=== PATIENT | female | born 1940 | race Two or more races ===

== ENCOUNTER 2019-01-30 08:15 | Day surgery (SDC) | payer OTHER ==
[2019-01-29 13:06] VITALS: BMI 28.6
[2019-01-30 10:50] VITALS: TEMP 97.6
[2019-01-30 11:12] VITALS: PULSE 66
[2019-01-30 12:44] VITALS: BP 147/67
[2019-01-30 13:34] LABS: INR 1.03 (0.83-1.09); PROTHROMBIN TIME (PATIENT) 12.1 SEC (9.7-13.0)
[2019-01-30 13:48] LABS: ALBUMIN 3.9 g/dl (3.4-5.0); ALK PHOS 50 U/L (45-117); ANION GAP 7 MMOL/L (8-16); BILIRUBIN,TOTAL 0.4 mg/dL (0.2-1); BLOOD UREA NITROGEN 15 mg/dL (7-18); CALCIUM 8.8 mg/dL (8.5-10.1); CHLORIDE 104 mmol/L (98-107); CO2 30 mmol/L (21-32); CREATININE 0.5 mg/dL (0.55-1.3); GLUCOSE,RANDOM 106 mg/dL (74-106); POTASSIUM 3.3 mmol/L (3.5-5.1); SGOT/AST 20 U/L (15-37); SGPT/ALT 29 U/L (13-61); SODIUM 141 mmol/L (136-145); TOT PROT 7.4 g/dl (6.4-8.2)
[2019-01-30 15:35] LABS: HEMATOCRIT 42.1 % (32.4-45.2); HEMOGLOBIN 14.1 GM/dL (10.7-15.3); MCH 27.7 pg (25.7-33.7); MCHC 33.5 g/dl (32.0-36.0); MEAN CELL VOLUME 82.5 fl (80-96); MEAN PLT VOLUME 8.8 fl (7.5-11.1); PLATELET COUNT 243 K/MM3 (134-434); RBC 5.11 M/mm3 (3.60-5.2); RDW 13.4 % (11.6-15.6)
[2019-01-30 15:39] LABS: WHITE BLOOD COUNT 5.7 K/mm3 (4.0-10.0)
--- NOTE | 2019-02-02 15:18 | PATH ---
Surgical Pathology Report Patient Name: ABI WOODSON [facility]. Rec. #: [id number] /Age/Gender: 1940 (Age: 78) / F Account: [id number] Location: U-ENDOSCOPY Taken: 01/30/2019 Received: 01/30/2019 Reported: 02/02/2019 Physicians: Melvi Minor M.D. Specimen(s) Received A: BX 2ND PORTION DUODENUM AND BULB B: BX ANTRUM C: FUNDUS AND GASTRIC BODY POLYPS D: BX RECTAL MASS E: BX TRANSVERSE COLON POLYPS X 2 F: BX HEPATIC FLEXURE POLYP Clinical History Rectal bleeding and history of adenomatous polyps Postoperative diagnosis: Hiatal hernia, fundic polyp, gastric polyps, colon polyps, diverticulosis, bleeding rectal mass rule out cancer Final Diagnosis A. SECOND PORTION AND BULB OF DUODENUM, BIOPSY: DUODENAL MUCOSA WITH NO DIAGNOSTIC ABNORMALITIES. NO HISTOLOGIC EVIDENCE OF CELIAC DISEASE. B. ANTRUM, BIOPSY: GASTRIC MUCOSA WITH CHRONIC GASTRITIS. IMMUNOSTAIN FOR H. PYLORI IS NEGATIVE. NEGATIVE FOR INTESTINAL METAPLASIA. C. FUNGUS AND GASTRIC BODY POLYPS, BIOPSY: HYPERPLASTIC POLYP, TWO FRAGMENTS. SEPARATE FRAGMENTS OF GASTRIC MUCOSA WITH ACTIVE CHRONIC GASTRITIS AND LYMPHOID AGGREGATES IN THE LAMINA PROPRIA. IMMUNOSTAIN FOR H. PYLORI IS POSITIVE. NEGATIVE FOR INTESTINAL METAPLASIA. D. RECTAL MASS, BIOPSY: INVASIVE ADENOCARCINOMA, MODERATELY DIFFERENTIATED. E. TRANSVERSE COLON POLYPS X 2, POLYPECTOMY: TUBULAR ADENOMA, ONE FRAGMENT. SEPARATE FEW FRAGMENTS OF SUPERFICIAL EPITHELIUM WITH NO SIGNIFICANT PATHOLOGIC CHANGE. F. HEPATIC FLEXURE POLYP, POLYPECTOMY: TUBULAR ADENOMA. Intradepartmental case reviewed with concordance on diagnosis. This case was discussed with Dr. Minor on February 02, 2019. Electronically Signed Alyssa Shafer M.D. Gross Description A. Received in formalin, labeled "second portion and bulb of duodenum biopsy" are 3 ledezma, irregular portions of soft tissue ranging from 0.3-0.6 cm. in greatest dimension. The specimens are submitted in toto in one cassette. B. Received in formalin, labeled "antrum biopsy" is a ledezma, irregular portion of soft tissue measuring 0.5 cm. in greatest dimension. The specimen is submitted in toto in one cassette. C. Received in formalin, labeled "fundus and gastric body polyps" are 4 ledezma, irregular portions of soft tissue ranging from 0.2-0.4 cm. in greatest dimension. The specimens are submitted in toto in one cassette. D. Received in formalin, labeled "rectal polyp" is a ledezma, polypoid portion of soft tissue measuring 0.8 cm. in greatest dimension. The specimen is submitted in toto in one cassette. E. Received in formalin, labeled "transverse colon polyp biopsy" is a ledezma, irregular portion of soft tissue measuring 0.3 cm. in greatest dimension. The specimen is submitted in toto in one cassette. F. Received in formalin, labeled "hepatic flexure polyp" are 2 ledezma, irregular portions of soft tissue measuring 0.2 and 0.3 cm. in greatest dimension. The specimens are submitted in toto in one cassette. 01/30/201901/30/2019
== END 2019-01-30 12:44 | disposition home or self-care (01) ==
LOC: JASU-ENDO 08:15
PROVIDERS: ATTEND Internal Medicine Gastroenterology
PROC: 0DBL8ZX Excision of Transverse Colon, Via Natural or Artificial Opening Endoscopic, Diagnostic (ICD-10-PCS; 2019-01-30)
PROC: 0DB68ZX Excision of Stomach, Via Natural or Artificial Opening Endoscopic, Diagnostic (ICD-10-PCS; 2019-01-30)
PROC: 3E0H8GC Introduction of Other Therapeutic Substance into Lower GI, Via Natural or Artificial Opening Endoscopic (ICD-10-PCS; 2019-01-30)
PROC: 0DBP8ZX Excision of Rectum, Via Natural or Artificial Opening Endoscopic, Diagnostic (ICD-10-PCS; principal; 2019-01-30 09:15)
DX: Z12.11 Encounter for screening for malignant neoplasm of colon (principal); C20 Malignant neoplasm of rectum; D12.3 Benign neoplasm of transverse colon; K64.8 Other hemorrhoids; K57.30 Diverticulosis of large intestine without perforation or abscess without bleeding; K29.50 Unspecified chronic gastritis without bleeding; K44.9 Diaphragmatic hernia without obstruction or gangrene; K21.9 Gastro-esophageal reflux disease without esophagitis; K31.7 Polyp of stomach and duodenum; Z86.010 Personal history of colon polyps
CPT/HCPCS: 36415; 80053; 82378; 82728; 85027; 85610; 88305-TC; 88342-TC